=== PATIENT | male | born 1945 | race Caucasian/White ===

== ENCOUNTER → 2017-01-04 | Outpatient (CLI) | payer MEDICARE, BC | LOC: LAB 09:24 | DX: I10 Essential (primary) hypertension (principal); R74.8 Abnormal levels of other serum enzymes; D75.89 Other specified diseases of blood and blood-forming organs; R94.5 Abnormal results of liver function studies; Z72.89 Other problems related to lifestyle ==

== ENCOUNTER 2018-02-11 09:50 | Outpatient (RCR) | payer MEDICARE, BC ==
[~2018-02-11] VITALS: Ht 182.9 cm; Wt 79.5 kg
[2018-02-11 10:17] VITALS: BP 141/75
[2018-02-11] MEDS ORDERED: ACCUPRIL 40MG T40 MG PO (10:20)
[2018-02-12 10:00] VITALS: BP 153/82
[2018-02-13 10:08] VITALS: BP 154/82
[2018-02-14 10:30] VITALS: BP 138/76
[2018-02-15 10:16] VITALS: BP 138/82
[2018-02-16 10:03] VITALS: BP 146/77
[2018-02-16 10:35] VITALS: BP 130/69
[2018-02-17 10:20] VITALS: BP 132/72
[2018-02-17 10:53] VITALS: BP 132/71
[2018-02-18 10:04] VITALS: BP 135/75
[2018-02-18 10:38] VITALS: BP 146/81
[2018-02-19] MEDS ORDERED: AMLODIPINE BESYL5 MG PO (09:28)
[2018-02-19 10:03] VITALS: BP 137/74
[2018-02-19 10:32] VITALS: BP 132/72
[2018-02-20 10:11] VITALS: BP 130/72
[2018-02-20 11:01] VITALS: BP 129/74
[2018-02-21 09:48] VITALS: BP 141/78
[2018-02-22 10:09] VITALS: BP 134/76
[2018-02-22 10:45] VITALS: BP 118/70
[2018-02-22] MEDS ORDERED: ZYLOPRIM 100MG100 MG PO (11:41)
--- NOTE | 2018-02-22 21:30 | NUR ---
PATIENTS DAUGHTER CALLS NURSES STATION, PATIENT HAS SPIKED A FEVER AND THEY ARE CONCERNED HE MIGHT BE SEPTIC, HE HAS BEEN ADMITTED TO [facility] IN [place] AND WILL NOT BE IN FOR HIS OUTPATIENT IV ANTIBIOTICS ON SATURDAY
[2018-02-26 10:00] VITALS: BP 147/86
[2018-02-26] MEDS ORDERED: ZYLOPRIM300 MG PO (10:18)
[2018-02-26 10:45] VITALS: BP 124/71
--- NOTE | 2018-02-26 11:51 | NUR ---
Pt here to resume IV abx. PICC pulled during hospitalization at [place] over previous 3 days. Pt reports that he had reaction to Rocephin, this being the reason for Abx change. Pt presents with INT to LAC, that was placed during hospitalization. Requests this access be used if still patent. IV flushes easily with no pain. There is some redness around IV insert site. Pt denies pain with infusion. Once abx complete, flushed line and d/c pt with INT in place.
[2018-02-27 10:18] VITALS: BP 133/75
[2018-02-27 10:47] VITALS: BP 127/75
--- NOTE | 2018-02-28 10:15 | NUR ---
Lab in to draw CBC as ordered
[2018-02-28 10:20] VITALS: BP 128/74
[2018-02-28 10:46] VITALS: BP 129/83
--- NOTE | 2018-02-28 10:46 | NUR ---
Pt leaves ambulatory. Antibiotic round completed per orders. INT dc'd
== END 2018-02-28 18:11 | disposition home or self-care (01) ==
LOC: AMSURD 09:50
DX: M00.861 Arthritis due to other bacteria, right knee (principal); B95.61 Methicillin susceptible Staphylococcus aureus infection as the cause of diseases classified elsewhere
CPT/HCPCS: J0696; J1335; J1644

== ENCOUNTER → 2018-02-17 | Outpatient (CLI) | payer MEDICARE, BC ==
[2018-02-16 10:35] VITALS: BP 130/69
[~2018-02-17] MED LIST: ACCUPRIL 40MG T40 MG PO; AMLODIPINE BESYL5 MG PO
[2018-02-17 10:23] LABS: HEMATOCRIT 39.7 % (42.0-52.0); HEMOGLOBIN 14.2 g/dL (13.5-18.0); MEAN PLATELET VOLUME 8.1 fl (7.4-10.4); RED BLOOD COUNT 4.25 M/mm3 (4.20-5.60); RED CELL DISTRIBUTION WIDTH 11.2 % (11.5-14.5); WHITE BLOOD COUNT 5.7 K/mm3 (4.8-10.8)
[2018-02-17 10:50] LABS: BUN/CREATININE RATIO 11.9 (6.0-26.0); CALCIUM 9.7 mg/dL (8.4-10.2); POTASSIUM 4.2 mmol/L (3.6-5.0); TOTAL BILIRUBIN 0.9 mg/dL (0.2-1.3); TOTAL PROTEIN 8.2 g/dL (6.3-8.2)
== END ==
LOC: LAB 09:53
PROVIDERS: Internal Medicine Infectious Disease
DX: M00.261 Other streptococcal arthritis, right knee (principal); B95.0 Streptococcus, group A, as the cause of diseases classified elsewhere

== ENCOUNTER → 2018-02-28 | Outpatient (CLI) | payer MEDICARE, BC ==
[2018-02-27 10:47] VITALS: BP 127/75
[~2018-02-28] MED LIST changes: +ZYLOPRIM 100MG100 MG PO; +ZYLOPRIM300 MG PO
[2018-02-28 11:36] LABS: ALBUMIN 3.9 g/dL (3.5-5.0); BUN/CREATININE RATIO 10.2 (6.0-26.0); CALCIUM 9.4 mg/dL (8.4-10.2); TOTAL BILIRUBIN 0.8 mg/dL (0.2-1.3)
[2018-02-28 11:40] LABS: HEMATOCRIT 36.2 % (42.0-52.0); HEMOGLOBIN 13.3 g/dL (13.5-18.0); MEAN PLATELET VOLUME 8.5 fl (7.4-10.4); RED BLOOD COUNT 3.95 M/mm3 (4.20-5.60); RED CELL DISTRIBUTION WIDTH 11.5 % (11.5-14.5); WHITE BLOOD COUNT 4.6 K/mm3 (4.8-10.8)
[2018-03-01 09:23] LABS: C-REACTIVE PROTEIN XXX
== END ==
LOC: LAB 09:59
PROVIDERS: Internal Medicine Hematology & Oncology
DX: M00.09 Staphylococcal polyarthritis (principal)

== ENCOUNTER → 2018-03-17 | Outpatient (CLI) | payer MEDICARE, BC ==
[2018-02-28 10:46] VITALS: BP 129/83
[2018-03-17 22:52] LABS: HEPATITIS C ANTIBODY Negative (())
== END ==
LOC: LAB 08:50
PROVIDERS: Family Medicine
DX: R74.0 Nonspecific elevation of levels of transaminase and lactic acid dehydrogenase [LDH] (principal)

== ENCOUNTER → 2020-10-01 | Outpatient (CLI) | payer MEDICARE, OTHER ==
[2020-10-01 10:32] LABS: HEMATOCRIT 39.5 % (42.0-52.0); HEMOGLOBIN 14.9 g/dL (13.5-18.0); MEAN PLATELET VOLUME 8.2 fl (7.4-10.4); RED BLOOD COUNT 4.11 M/mm3 (4.20-5.60); RED CELL DISTRIBUTION WIDTH 11.6 % (11.5-14.5); WHITE BLOOD COUNT 7.3 K/mm3 (4.8-10.8)
[2020-10-01 10:38] LABS: ALBUMIN 3.8 g/dL (3.4-4.8); POTASSIUM 3.8 mmol/L (3.5-5.1); SODIUM 125 mmol/L (136-145)
[2020-10-01 10:39] LABS: CALCIUM 9.3 mg/dL (8.3-10.5)
[2020-10-01 10:40] LABS: GLUCOSE 117 mg/dL (75-110)
[2020-10-01 10:42] LABS: TOTAL BILIRUBIN 2.1 mg/dL (0.2-1.2)
[2020-10-01 10:46] LABS: AST-SGOT 55 U/L (5-34)
[2020-10-01 10:47] LABS: ALT/SGPT 47 U/L (0-55)
[2020-10-01 11:08] LABS: CARBON DIOXIDE 16 mmol/L (23-31); TROPONIN-I < 0.03 ng/mL (<0.030)
== END ==
LOC: AMSURD 09:54
PROVIDERS: Nurse Practitioner
DX: M25.512 Pain in left shoulder (principal)

== ENCOUNTER 2020-10-06 10:33 | Emergency (ER) | payer MEDICARE, OTHER ==
[~2020-10-06] VITALS: Wt 78.7 kg
[2020-10-06 11:06] LABS: ALBUMIN 3.1 g/dL (3.4-4.8); HEMATOCRIT 26.2 % (42.0-52.0); HEMOGLOBIN 9.7 g/dL (13.5-18.0); MEAN CELL VOLUME 98 fl (78-100); MEAN CORPUSCULAR HGB CONC 37 g/dL (33-37); MEAN PLATELET VOLUME 9.1 fl (7.4-10.4); PLATELET COUNT 277 K/mm3 (130-400); POTASSIUM 3.7 mmol/L (3.5-5.1); RED BLOOD COUNT 2.67 M/mm3 (4.20-5.60); RED CELL DISTRIBUTION WIDTH 11.4 % (11.5-14.5); SODIUM 126 mmol/L (136-145)
[2020-10-06 11:08] LABS: GLUCOSE 169 mg/dL (75-110)
[2020-10-06 11:09] LABS: TOTAL PROTEIN 6.2 g/dL (6.2-8.1)
[2020-10-06 11:10] LABS: CARBON DIOXIDE 20 mmol/L (23-31); TOTAL BILIRUBIN 1.1 mg/dL (0.2-1.2)
[2020-10-06 11:14] LABS: AST-SGOT 64 U/L (5-34)
[2020-10-06 11:15] LABS: ALT/SGPT 63 U/L (0-55)
[2020-10-06] MEDS ORDERED: CYCLOBENZAPRINE10 M1 PO (11:15)
[2020-10-06] MEDS ORDERED: ACETAMINOPHEN-H1 TA1 PO (11:15)
[2020-10-06 11:30] LABS: D-DIMER 0.8 mg/L FEU (0.15-0.50)
[2020-10-06 11:32] LABS: TROPONIN-I < 0.03 ng/mL (<0.030)
[2020-10-06 11:35] LABS: MEAN CORPUSCULAR HEMOGLOBIN 36 pg (27-31)
[2020-10-06 11:36] LABS: LYMPHOCYTE 7 % (20-51); NEUTROPHILS 92 % (42-75)
[2020-10-06 11:37] LABS: MONOCYTE 1 % (3-10)
[2020-10-06 14:09] LABS: URINE APPEARANCE HAZY; URINE COLOR AMBER
[2020-10-06 14:10] LABS: URINE BILIRUBIN 1+ (NEGATIVE); URINE BLOOD NEGATIVE (NEGATIVE); URINE GLUCOSE NEGATIVE (NEGATIVE); URINE KETONE NEGATIVE (NEGATIVE); URINE LEUKOCYTE ESTERASE 1+ (NEGATIVE); URINE NITRATE NEGATIVE (NEGATIVE); URINE PROTEIN(semi-quant) TRACE mg/dL (NEGATIVE); URINE UROBILINOGEN NORMAL (NORMAL)
[2020-10-06 14:11] LABS: URINE MUCUS PRESENT (NOT PRESENT)
[2020-10-06 16:26] VITALS: BP 110/53
== END 2020-10-06 16:27 | disposition short-term general hospital (02) ==
LOC: ED 10:33
PROVIDERS: Nurse Practitioner Family
DX: E87.1 Hypo-osmolality and hyponatremia (principal); R06.02 Shortness of breath; A41.9 Sepsis, unspecified organism; M25.512 Pain in left shoulder; N17.9 Acute kidney failure, unspecified; K92.1 Melena; I10 Essential (primary) hypertension; Z20.828 Contact with and (suspected) exposure to other viral communicable diseases
CPT/HCPCS: C9113; J0696; J7030; Q9967

== ENCOUNTER → 2020-10-11 | Outpatient (CLI) | payer MEDICARE, OTHER ==
[2020-10-06 16:26] VITALS: BP 110/53
[~2020-10-11] MED LIST changes: +ACETAMINOPHEN-H1 TA1 PO; +CYCLOBENZAPRINE10 M1 PO
[2020-10-11 10:09] LABS: HEMATOCRIT 26.8 % (42.0-52.0); HEMOGLOBIN 9.2 g/dL (13.5-18.0)
[2020-10-11 10:13] LABS: POTASSIUM 3.6 mmol/L (3.5-5.1)
[2020-10-11 10:14] LABS: CALCIUM 8.6 mg/dL (8.3-10.5)
== END ==
LOC: LAB 09:43
PROVIDERS: Physician Assistant
DX: K92.2 Gastrointestinal hemorrhage, unspecified (principal)

== ENCOUNTER 2020-11-16 10:00 | Outpatient (RCR) | payer MEDICARE, OTHER | END 2020-11-21 | disposition home or self-care (01) | LOC: PT | DX: M25.512 Pain in left shoulder (principal) ==

== ENCOUNTER 2020-11-23 09:48 | Outpatient (RCR) | payer MEDICARE | END 2020-11-23 10:30 | LOC: PT 09:48 | DX: M25.512 Pain in left shoulder (principal) ==

== ENCOUNTER → 2020-12-05 | Outpatient (CLI) | payer MEDICARE ==
[2020-12-05 09:21] LABS: HEMATOCRIT 45.4 % (42.0-52.0); HEMOGLOBIN 15.7 g/dL (13.5-18.0); MEAN PLATELET VOLUME 8.7 fl (7.4-10.4); RED BLOOD COUNT 4.92 M/mm3 (4.20-5.60); RED CELL DISTRIBUTION WIDTH 13.5 % (11.5-14.5); WHITE BLOOD COUNT 5.2 K/mm3 (4.8-10.8)
[2020-12-05 09:28] LABS: ALBUMIN 3.8 g/dL (3.4-4.8); POTASSIUM 3.8 mmol/L (3.5-5.1)
[2020-12-05 09:30] LABS: TOTAL PROTEIN 6.9 g/dL (6.2-8.1)
[2020-12-05 09:32] LABS: TOTAL BILIRUBIN 1.8 mg/dL (0.2-1.2)
== END ==
LOC: LAB 08:23
PROVIDERS: Family Medicine
DX: K92.89 Other specified diseases of the digestive system (principal)

== ENCOUNTER 2021-01-02 14:59 | Emergency (ER) | payer MEDICARE ==
[~2021-01-02] VITALS: Ht 177.8 cm; Wt 80.0 kg
[~2021-01-02 14:59] MED LIST changes: -AZITHROMYCIN 250MGPK PO; -PREDNISONE20 M1 PO
[2021-01-02 15:39] LABS: BASO # 0.1 (0.02-0.10); EOS # 0.5 (0.04-0.40); HEMATOCRIT 50.2 % (42.0-52.0); LYMPH# 0.9 (1.50-4.00); MEAN CELL VOLUME 89 fl (78-100); MEAN CORPUSCULAR HEMOGLOBIN 32 pg (27-31); MEAN CORPUSCULAR HGB CONC 36 g/dL (33-37); MEAN PLATELET VOLUME 9.3 fl (7.4-10.4); MONO # 0.8 (0.20-0.80); NEU # 4.9 (1.40-6.50); PLATELET COUNT 206 K/mm3 (130-400); RED BLOOD COUNT 5.63 M/mm3 (4.20-5.60); RED CELL DISTRIBUTION WIDTH 13.4 % (11.5-14.5); WHITE BLOOD COUNT 7.3 K/mm3 (4.8-10.8)
[2021-01-02 15:41] LABS: EOS % 7.4 % (0.0-4.0)
[2021-01-02 16:02] LABS: ALBUMIN 3.8 g/dL (3.4-4.8); POTASSIUM 3.6 mmol/L (3.5-5.1); SODIUM 135 mmol/L (136-145)
[2021-01-02 16:03] LABS: CALCIUM 8.7 mg/dL (8.3-10.5)
[2021-01-02 16:04] LABS: GLUCOSE 123 mg/dL (75-110)
[2021-01-02 16:05] LABS: TOTAL PROTEIN 6.8 g/dL (6.2-8.1)
[2021-01-02 16:06] LABS: CARBON DIOXIDE 21 mmol/L (23-31); TOTAL BILIRUBIN 1.3 mg/dL (0.2-1.2)
[2021-01-02 16:10] LABS: AST-SGOT 50 U/L (5-34)
[2021-01-02 16:11] LABS: ALT/SGPT 50 U/L (0-55)
[2021-01-02 16:17] LABS: PARTIAL THROMBOPLASTIN TIME 26.2 SECONDS (21.0-32.0); PROTHROMBIN TIME 12.6 SECONDS (9.0-12.0)
[2021-01-02 16:18] LABS: D-DIMER 0.36 mg/L FEU (0.15-0.50); TROPONIN-I < 0.03 ng/mL (<0.030)
[2021-01-02 16:25] LABS: URINE APPEARANCE CLEAR; URINE COLOR YELLOW
[2021-01-02 16:26] LABS: PH-URINE 6.5 (5.0 - 8.0); URINE BILIRUBIN 1+ (NEGATIVE); URINE BLOOD NEGATIVE (NEGATIVE); URINE GLUCOSE NEGATIVE (NEGATIVE); URINE KETONE NEGATIVE (NEGATIVE); URINE LEUKOCYTE ESTERASE NEGATIVE (NEGATIVE); URINE MUCUS PRESENT (NOT PRESENT); URINE NITRATE NEGATIVE (NEGATIVE); URINE PROTEIN(semi-quant) 1+ mg/dL (NEGATIVE); URINE UROBILINOGEN NORMAL (NORMAL); URINE WBC 0-1 /hpf (0-3)
[2021-01-02] MEDS ORDERED: PREDNISONE20 M1 PO (16:32)
[2021-01-02] MEDS ORDERED: AZITHROMYCIN 250MGPK PO (16:32)
[2021-01-02 16:37] VITALS: BP 152/88
== END 2021-01-02 16:37 | disposition home or self-care (01) ==
LOC: ED 14:59
PROVIDERS: Nurse Practitioner
DX: J40 Bronchitis, not specified as acute or chronic (principal); J34.89 Other specified disorders of nose and nasal sinuses; I10 Essential (primary) hypertension; Z20.822 Contact with and (suspected) exposure to COVID-19; Z88.6 Allergy status to analgesic agent
CPT/HCPCS: J7030

== ENCOUNTER → 2021-01-02 | Outpatient (CLI) | payer MEDICARE ==
[~2021-01-02] MED LIST changes: +AZITHROMYCIN 250MGPK PO; +PREDNISONE20 M1 PO
== END ==
LOC: LAB 14:32 → RAD 14:32
DX: R05 Cough (principal)

== ENCOUNTER → 2021-11-30 | Outpatient (CLI) | payer MEDICARE ==
[~2021-11-30] MED LIST changes: +AZITHROMYCIN 250MGPK PO; +PREDNISONE20 M1 PO
== END ==
LOC: RAD 11:42
DX: R05.9 Cough, unspecified (principal)

== ENCOUNTER → 2022-03-07 | Outpatient (CLI) | payer MEDICARE ==
[2022-03-07 11:56] LABS: BASO # 0.07 K/mm3 (0.02-0.10); EOS % 3.2 % (0.0-4.0); HEMATOCRIT 48.2 % (42.0-52.0); HEMOGLOBIN 17.8 g/dL (13.5-18.0); LYMPH# 1.28 K/mm3 (1.50-4.00); MEAN CELL VOLUME 96 fl (78-100); MEAN CORPUSCULAR HEMOGLOBIN 36 pg (27-31); MEAN CORPUSCULAR HGB CONC 37 g/dL (33-37); MEAN PLATELET VOLUME 8.5 fl (7.4-10.4); MONO # 0.49 K/mm3 (0.20-0.80); NEU # 4.17 K/mm3 (1.40-6.50); PLATELET COUNT 195 K/mm3 (130-400); RED CELL DISTRIBUTION WIDTH 11.5 % (11.5-14.5); WHITE BLOOD COUNT 6.2 K/mm3 (4.8-10.8)
[2022-03-07 12:03] LABS: POTASSIUM 4.3 mmol/L (3.5-5.1)
[2022-03-07 12:04] LABS: ALBUMIN 4.5 g/dL (3.4-4.8)
[2022-03-07 12:06] LABS: TOTAL PROTEIN 8.2 g/dL (6.2-8.1)
[2022-03-07 12:08] LABS: TOTAL BILIRUBIN 2.1 mg/dL (0.2-1.2)
== END ==
LOC: LAB 11:38
PROVIDERS: Family Medicine
DX: Z00.00 Encounter for general adult medical examination without abnormal findings (principal); I10 Essential (primary) hypertension; E78.5 Hyperlipidemia, unspecified; J30.2 Other seasonal allergic rhinitis; E66.3 Overweight; F10.10 Alcohol abuse, uncomplicated

== ENCOUNTER → 2022-03-14 | Outpatient (CLI) | payer MEDICARE | LOC: RAD 09:40 | DX: R74.01 Elevation of levels of liver transaminase levels (principal) ==